=== PATIENT | female | born 1990 | race Caucasian/White ===

== ENCOUNTER → 2018-10-05 | Outpatient (CLI) | payer OTHER | END | disposition home or self-care (01) | LOC: NST 17:21 | DX: Z34.83 Encounter for supervision of other normal pregnancy, third trimester (principal) ==

== ENCOUNTER 2018-10-29 12:30 | Inpatient (IN) | payer OTHER ==
[~2018-10-29] VITALS: Ht 165.1 cm; Wt 4.1 kg
[2018-11-10] MEDS ORDERED: IRON325 MG PO (10:33)
[2018-11-10] MEDS ORDERED: PRENATAL PLUS1 EAC1 PO (10:33)
== END 2018-11-13 12:41 | disposition home or self-care (01) | DRG 788 ==
LOC: OB/GYN 12:30 → SURG-SUITE 11-10 09:52 → O/R 11-10 09:52 → OB/GYN 11-10 12:30 → SURG-SUITE 11-10 15:05
PROVIDERS: ADMIT Obstetrics & Gynecology Maternal & Fetal Medicine
PROC: 4A1HXCZ Monitoring of Products of Conception, Cardiac Rate, External Approach (ICD-10-PCS; 2018-11-10)
PROC: 10D00Z1 Extraction of Products of Conception, Low, Open Approach (ICD-10-PCS; principal; 2018-11-10 14:45)
DX: O82 Encounter for cesarean delivery without indication (principal); O64.1XX0 Obstructed labor due to breech presentation, not applicable or unspecified; Z3A.39 39 weeks gestation of pregnancy; Z37.0 Single live birth

== ENCOUNTER 2018-12-19 03:36 | Emergency (ER) | payer OTHER ==
[~2018-12-19] VITALS: Ht 165.1 cm; Wt 65.8 kg
[~2018-12-19 03:36] MED LIST: IRON325 MG PO; PRENATAL PLUS1 EAC1 PO
[2018-12-19] MEDS ORDERED: DUI500 PO (07:19)
== END 2018-12-19 07:40 | disposition home or self-care (01) ==
LOC: ER 03:36
DX: N61.0 Mastitis without abscess (principal); J45.998 Other asthma

== ENCOUNTER → 2022-05-01 | Emergency (ER) | payer OTHER ==
[~2022-05-01] MED LIST changes: +DUI500 PO
== END | disposition left against medical advice (07) ==
LOC: ER 11:24
DX: Z53.21 Procedure and treatment not carried out due to patient leaving prior to being seen by health care provider (principal)

== ENCOUNTER 2024-08-30 14:23 | Emergency (ER) | payer OTHER ==
[~2024-08-30] VITALS: Ht 162.6 cm; Wt 60.8 kg
[2024-08-30] MEDS ORDERED: FLUOXETINE HCL60 MG PO (15:38)
[2024-08-30] MEDS ORDERED: STRATTERA10 MG PO (15:38)
[2024-08-30] MEDS ORDERED: CEFTRIAXONE SODIUM 1,000 MG VIAL IM ONE (17:15)
[2024-08-30] MEDS ORDERED: LIDOCAINE HCL 1% 10ML VIAL PERCUT ONE (17:15)
[2024-08-30] MEDS ORDERED: PEPCID AC20 MG PO (18:00)
[2024-08-30] MEDS ORDERED: CEFUROXIME500 MG PO (18:00)
== END 2024-08-30 18:09 | disposition home or self-care (01) ==
LOC: ER 14:46
DX: S61.422A Laceration with foreign body of left hand, initial encounter (principal); W26.0XXA Contact with knife, initial encounter; Y93.89 Activity, other specified; Y92.018 Other place in single-family (private) house as the place of occurrence of the external cause; Z88.6 Allergy status to analgesic agent